=== PATIENT | female | born 1945 | race Caucasian/White ===

== ENCOUNTER 2019-02-13 05:54 | Day surgery (SDC) | payer MEDICARE, OTHER ==
[2019-02-13] MEDS ORDERED: EPINEPHrine 1 MG INJ (06:45)
[2019-02-13] MEDS: CYCLOPENTOLATE/PHENYLEPH 2 ML OPH OPER (06:51)
[2019-02-13] MEDS: TROPICAMIDE 1% 15 ML OPH OPER (06:51)
[2019-02-13] MEDS: DICLOFENAC 0.1% 2.5 ML OPH OPER (06:51)
[2019-02-13] MEDS: MOXIFLOXACIN 0.5% 3 ML OPH OPER (06:51)
[2019-02-13] MEDS: SOD CHLORIDE 0.9% 1,000 ML IV (06:52)
[2019-02-13] MEDS ORDERED: ONDANSETRON 4 MG INJ IV (07:30)
[2019-02-13] MEDS ORDERED: LABETALOL HCL 20MG INJ IV (07:30)
[2019-02-13] MEDS ORDERED: METOCLOPRAMIDE 10 MG INJ IV (07:30)
[2019-02-13] MEDS ORDERED: EPHEDrine 25 MG/5 ML SYG IV (07:30)
[2019-02-13] MEDS ORDERED: hydrALAzine 20 MG INJ IV (07:30)
[2019-02-13] MEDS ORDERED: FENTAnyl 50 MCG/ML VIAL IV (07:30)
[2019-02-13] MEDS ORDERED: OXYCODONE/ACETAMINOPHEN (5/325) TAB PO (07:30)
[2019-02-13] MEDS ORDERED: HYDROmorphONE 1 MG/5 ML IV SYRINGE IV (07:30)
[2019-02-13] MEDS ORDERED: PROPOFOL 20 ML (07:36)
[2019-02-13] MEDS ORDERED: MIDAZOLAM 1 MG/ML 2 ML INJ (07:36)
[2019-02-13] MEDS ORDERED: ONDANSETRON 4 MG INJ (07:53)
[2019-02-13] MEDS ORDERED: METOCLOPRAMIDE 10 MG INJ (07:53)
[2019-02-13] MEDS: CARBACHOL 0.01% 1.5 ML OPH INJ (07:54)
[2019-02-13] MEDS: CEFAZOLIN 1 GM INJ (07:55)
[2019-02-13] MEDS: GENTAMICIN 80 MG INJ (07:57)
[2019-02-13] MEDS: DEXAMETHASONE 4 MG/ML 1 ML INJ (07:57)
[2019-02-13] MEDS: NA HYALURONATE/CHONDROITIN 0.5 ML SYG OP (07:58)
[2019-02-13] MEDS: TETRACAINE 0.5% 4 ML OPH (07:58)
[2019-02-13] MEDS: LIDOCAINE 4% (MPF) 5 ML INJ (07:58)
== END 2019-02-13 09:09 | disposition home or self-care (01) ==
LOC: SDS 05:54
DX: H25.11 Age-related nuclear cataract, right eye (principal); I10 Essential (primary) hypertension; E78.2 Mixed hyperlipidemia; F41.9 Anxiety disorder, unspecified
CPT/HCPCS: 66984